=== PATIENT | female | born 1960 | race Caucasian/White ===

== ENCOUNTER 2016-11-10 08:30 | Outpatient (CLI) | payer MEDICAID | END 2016-11-10 08:31 | disposition home or self-care (01) | DX: N39.0 Urinary tract infection, site not specified (principal) ==

== ENCOUNTER 2018-08-02 20:36 | Emergency (ER) | payer MEDICAID ==
[2018-08-02 20:46] VITALS: BP 143/75
[2018-08-02] MEDS ORDERED: oxyCODONE/ACET 5/325 Prepack 4 PO STA (20:55)
[2018-08-02] MEDS ORDERED: CLINDAMYCIN 150 MG CAPSULE PO STA (20:55)
--- NOTE | 2018-08-02 20:56 | ED Physician Documentation ---
History of Present Illness - Stated complaint Stated Complaint: SWELLING ON RT SIDE FACE - Chief complaint Chief Complaint: General - History obtained from History obtained from: Patient - History of Present Illness Timing: Other (She had a right-sided headache over the last week and saw her doctor for it yesterday. There is no clear cause but today developed right- sided facial swelling and pain with chewing. No fevers.) Review of Systems Constitutional: denies: Fever, Chills Ears: denies: Ear pain Nose: denies: Rhinorrhea / runny nose, Congestion Throat: denies: Sore throat PD PAST MEDICAL HISTORY - Past Medical History Respiratory: Asthma GI: GERD - Past Surgical History Past Surgical History: Yes - Present Medications Home Medications: Ambulatory Orders Medication Instructions Recorded Confirmed Omeprazole [PriLOSEC] 10 mg PO DAILY 01/16/14 01/16/14 Hydrocodone/Acetaminophen 1 - 2 each PO Q6H PRN #14 tablet 08/01/16 [Hydrocodon-Acetaminophen 5-325] Ondansetron Odt [Zofran] 4 mg TL Q6H PRN #10 tablet 08/01/16 Clindamycin HCl [Clindamycin 150MG 2 tab PO QID #80 capsule 08/02/18 CAP] Oxycodone HCl/Acetaminophen 1 - 2 each PO Q6H PRN #14 tablet 08/02/18 [Percocet 5-325 mg Tablet] - Allergies Allergies/Adverse Reactions: Allergies Allergy/AdvReac Type Severity Reaction Status Date / Time cherries AdvReac Unknown Respiratory Uncoded 08/02/18 20:40 nuts AdvReac Unknown Respiratory Uncoded 08/02/18 20:40 - Social History Does the pt smoke?: No Smoking Status: Never smoker Does the pt drink ETOH?: No Does the pt have substance abuse?: No - Immunizations Immunizations are current?: Yes - POLST Patient has POLST: No PD ED PE NORMAL - Vitals Vital signs reviewed: Yes - General General: Alert and oriented X 3, No acute distress - HEENT HEENT: Other (The second to last molar on the right maxilla is very tender and there is overlying swelling and phlegmon but no palpable abscess that can be drained at this juncture. There is no trismus, sublingual edema,) - Neck Neck: Supple, no meningeal sign, No bony TTP - Neuro Neuro: Alert and oriented X 3, Normal speech Results - Vitals Vitals: Vital Signs - 24 hr 08/02/18 20:41 Temperature 36.2 C L Heart Rate 72 Respiratory 18 Rate Blood Pressure 143/75 H O2 Saturation 98 Oxygen O2 Source Room air Departure - Departure Disposition: 01 Home, Self Care Clinical Impression: Dental abscess Condition: Good Record reviewed to determine appropriate education?: Yes Instructions: ED Dental Abscess Facial Cellulitis Prescriptions: Clindamycin HCl [Clindamycin 150MG CAP] 2 tab PO QID #80 capsule Oxycodone HCl/Acetaminophen [Percocet 5-325 mg Tablet] 1 - 2 each PO Q6H PRN #14 tablet PRN Reason: pain Comments: It is very important that you follow-up with a dentist. When it comes to dental problems like yours, the emergency department can only offer a short-term solution to your long-term problem. A couple of low cost options for dental care include: [facility] in [place], calls [phone] for an appointment Or [facility] in [place], call [phone] for an appointment. Do not drink or drive while taking narcotic pain medication. Note that many narcotic pain relievers also contain Tylenol/acetaminophen. Please ensure that your total dose of acetaminophen from all sources does not exceed 3 g (3000 mg) per day. You may get constipated while on this medication. Take a stool softener such as Colace twice a day while you are on it. Also add an yscu-ctr-lqugzhy laxative such as senna or MiraLAX on any day that you do not have a bowel movement. If you received a narcotic pain medication or sedative while in the emergency department, do not drive for the next 24 hours. Your blood pressure was elevated today on check into the emergency department. This does not mean that you have hypertension, it is a common phenomenon to come to the emergency department and have elevated blood pressure. I recommend that you see your primary care physician within the week to have it rechecked when you are feeling better. Discharge Date/Time: 08/02/18 21:07
== END 2018-08-02 21:07 | disposition home or self-care (01) ==
LOC: ED 20:36
DX: K04.7 Periapical abscess without sinus (principal); R03.0 Elevated blood-pressure reading, without diagnosis of hypertension
CPT/HCPCS: 99283; A9270

== ENCOUNTER 2019-06-20 16:49 | Outpatient (CLI) | payer MEDICAID ==
--- NOTE | 2019-06-23 02:17 | Ultrasound Report ---
Reason: UTERINE PROLAPSE Procedure Date: 06/20/2019 Accession Number: [id number] / [id number] Procedure: US - Pelvic w/Transvaginal CPT Code: FULL RESULT: EXAM: PELVIC ULTRASOUND EXAM DATE: 06/20/2019 06:10 PM. CLINICAL HISTORY: UTERINE PROLAPSE. COMPARISON: Uterine prolapse. TECHNIQUE: Realtime transabdominal pelvic scan performed to identify the uterus and adnexa and as an overview of other pelvic structures, followed by transvaginal scan to provide greater detail of the uterus and adnexa, with static image documentation. FINDINGS: Uterus: 8.2 x 4.4 x 3.8 cm, volume 72 cc. Anteverted position. Normal overall size and echotexture. Masses: 2.0 x 1.9 x 1.6 cm right fundal submucosal leiomyoma. Endometrium: 6 mm. Thickened for a postmenopausal patient. Correlate with history of postmenopausal bleeding. Cervix: Unremarkable. Right Ovary: 4.5 x 3.9 x 2.8 cm, volume 25 cc. Multiple cysts, measuring up to 3.6 cm in diameter. Left Ovary: 3.8 x 2.9 x 2.8 cm, volume 17 cc. Multiple cysts, measuring up to 2.4 cm in diameter. Free Fluid: None. Other: None. IMPRESSION: Multiple bilateral ovarian cysts, measuring up to 3.6 cm on the right ovary and 2.4 cm on the left ovary, abnormal for a postmenopausal patient. Thickened endometrium for a postmenopausal patient. Fundal leiomyoma. RADIA
== END 2019-06-20 16:50 | disposition home or self-care (01) ==
LOC: DI 16:49
PROVIDERS: ATTEND Family Medicine
DX: N83.202 Unspecified ovarian cyst, left side (principal); N83.201 Unspecified ovarian cyst, right side; R93.89 Abnormal findings on diagnostic imaging of other specified body structures; D25.0 Submucous leiomyoma of uterus
CPT/HCPCS: 76830; 76856

== ENCOUNTER 2019-08-23 06:07 | Day surgery (SDC) | payer MEDICAID ==
[2019-08-23] MEDS ORDERED: MIDAZOLAM 2 MG/2 ML VIAL IVP ONE (06:08)
[2019-08-23] MEDS ORDERED: PROPOFOL 200 MG/20 ML VIAL IVP ONE (06:08)
[2019-08-23] MEDS ORDERED: fentaNYL 100 MCG/2 ML VIAL IVP ONE (06:08)
[2019-08-23] MEDS ORDERED: LIDOCAINE-MPF 2% 5 ML VIAL IM ONE (06:08)
[2019-08-23] MEDS ORDERED: DEXAMETHASONE 4 MG/ML VIAL IVP ONE (06:08)
[2019-08-23] MEDS ORDERED: KETOROLAC 30 MG/ML VIAL IVP ONE (06:08)
[2019-08-23] MEDS ORDERED: LACTATED RINGERS 1,000 ML IV ONE ×2 (06:30→08:30)
[2019-08-23 06:52] LABS: BILIRUBIN,URINE NEGATIVE (NEGATIVE); GLUCOSE, URINE (UA) NEGATIVE (NEGATIVE); KETONES,URINE (UA) NEGATIVE (NEGATIVE); LEUKOCYTE ESTERASE, URINE NEGATIVE (NEGATIVE); NITRITE,URINE NEGATIVE (NEGATIVE); OCCULT BLOOD,URINE NEGATIVE (NEGATIVE); PROTEIN,URINE NEGATIVE (NEGATIVE); UROBILINOGEN,URINE 0.2 (NORMAL) E.U./dL (NORMAL)
[2019-08-23 06:53] LABS: CLARITY,URINE HAZY (CLEAR)
[2019-08-23 06:57] LABS: BACTERIA,URINE Rare /HPF (None Seen); RBC,URINE 0-5 /HPF (0-5); SQUAMOUS EPITHELIAL CELL,UR MANY Squamous (<= Few)
--- NOTE | 2019-08-23 07:09 | ANESTHESIA ---
Pre-Anesthesia VS, & Labs - Diagnosis endometrial polyp - Procedure hysterscopy, d&c, myosure Vital Signs: Temp Pulse Resp BP Pulse Ox 36.8 C 65 16 108/70 96 08/23/19 06:36 08/23/19 06:36 08/23/19 06:36 08/23/19 06:36 08/23/19 06:36 Height 5 ft 6 in Weight (kg) 89.9 kg Body Mass Index 32.0 - Is Patient ?: No Home Medications and Allergies Home Medications: Ambulatory Orders Acetaminophen [Tylenol] 650 mg PO Q6H PRN 08/14/19 Albuterol Sulf [Ventolin Hfa Inhaler] 1 - 2 puffs INH Q4HR PRN 08/14/19 Aspirin 325 mg PO ONCE PRN 08/14/19 Fluticasone Propionate [Flovent Hfa] 2 puffs IH BID 08/14/19 Glucos Sul 2Kcl/MSM/Chond/C/Mn [Glucosamine Chondroitin Cap] 1 each PO DAILY 08/14/19 Ibuprofen 400 mg PO Q6H PRN 08/14/19 Montelukast Sodium 10 mg PO DAILY 08/14/19 Acetaminophen [Tylenol] 650 mg PO Q6H PRN 08/14/19 Albuterol Sulf [Ventolin Hfa Inhaler] 1 - 2 puffs INH Q4HR PRN 08/14/19 Aspirin 325 mg PO ONCE PRN 08/14/19 Fluticasone Propionate [Flovent Hfa] 2 puffs IH BID 08/14/19 Glucos Sul 2Kcl/MSM/Chond/C/Mn [Glucosamine Chondroitin Cap] 1 each PO DAILY 08/14/19 Ibuprofen 400 mg PO Q6H PRN 08/14/19 Montelukast Sodium 10 mg PO DAILY 08/14/19 Allergies/Adverse Reactions: Allergies Allergy/AdvReac Type Severity Reaction Status Date / Time peanut AdvReac Nausea Verified 08/23/19 06:48 cherries AdvReac Unknown Nausea Uncoded 08/23/19 06:48 Anes History & Medical History - Anesthetic History Anesthesia Complications: reports: No previous complications - Medical History Cardiovascular: reports: High cholesterol Pulmonary: reports: Asthma (well controlled) Gastrointestinal: reports: GERD (poorly controlled) Urinary: reports: Chronic bladder infection Neuro: reports: None Musculoskeletal: reports: Osteoarthritis Endocrine/Autoimmune: reports: None Blood Disorders: reports: None Skin: reports: None Smoking Status: Never smoker Psychosocial: reports: No issues indicated - Surgical History General: Colonoscopy, Other (removal of neck tumor 40 years ago) Eyes Ears Nose Throat (EENT):  Exam General: Alert, Oriented x3, Cooperative, No acute distress Dental: WNL Mouth Openin Fingerbreadth Neck Mobility: Normal Mallampati classification: II Thyromental Distance: 4-6 cm Respiratory: Lungs clear, Normal breath sounds, No respiratory distress, No accessory muscle use Cardiovascular: Regular rate, Normal S1, Normal S2, No murmurs Mental/Cognitive Status: Alert/Oriented X3, Normal for patient Plan Anesthesia Type: General Consent for Procedure(s) Verified and Reviewed: Yes Code Status: Attempt Resuscitation ASA classification: 2-Mild systemic disease Is this case an emergency?: No
[2019-08-23 07:13] LABS: BASOPHILS % (AUTO) 0.5 %; EOSINOPHILS # (AUTO) 0.5 10^3/uL (0.0-0.7); EOSINOPHILS % (AUTO) 6.8 %; HGB - HEMOGLOBIN 15.6 g/dL (12.0-16.0); LYMPHOCYTES # (AUTO) 2.4 10^3/uL (1.5-3.5); LYMPHOCYTES % (AUTO) 30.3 %; MEAN CORPUSCULAR HEMOGLOBIN 29.4 pg (27.0-31.0); MEAN CORPUSCULAR HGB CONC 33.4 g/dL (32.0-36.0); MEAN CORPUSCULAR VOLUME 87.9 fL (81.0-99.0); MONOCYTES # (AUTO) 0.6 10^3/uL (0.0-1.0); MONOCYTES % (AUTO) 7.8 %; NEUTROPHILS # (AUTO) 4.3 10^3/uL (1.5-6.6); NEUTROPHILS % (AUTO) 54.3 %; PLT - PLATELET COUNT 273 10^3/uL (130-450); RED BLOOD COUNT 5.31 10^6/uL (4.20-5.40); RED CELL DISTRIBUTION WIDTH 13.5 % (12.0-15.0); WHITE BLOOD COUNT 7.9 x10^3/uL (4.8-10.8)
[2019-08-23] MEDS ORDERED: ONDANSETRON 4 MG/2 ML VIAL IVP PRN (08:16)
[2019-08-23] MEDS ORDERED: HYDROcod/ACETAM 5/325 MG TABLET PO PRN (08:16)
[2019-08-23] MEDS ORDERED: IBUPROFEN 600 MG TABLET PO PRN (08:18)
--- NOTE | 2019-08-23 08:33 | OPERATIVE REPORT ---
DATE OF SERVICE: 08/23/2019 Physician: Beto Montoya DO PREOPERATIVE DIAGNOSIS: Endometrial polyp. POSTOPERATIVE DIAGNOSIS: Normal endometrium. PROCEDURE: Hysteroscopy with Dilation and Curettage. SURGEON: Beto Montoya DO ANESTHESIA: General. ESTIMATED BLOOD LOSS: 5 mL WOUND CLASSIFICATION: 2. COUNTS: Sponge count was correct. Needle count was not applicable. SURGICAL FINDINGS: Though patient had a large polyp noted to be prolapsing from the cervical os, this was missing today. The endometrial cavity was unremarkable. It showed some atrophic changes as one would expect. Both cornua were inspected and found to be unremarkable. There is a grade 2-3 uterine prolapse. DESCRIPTION OF PROCEDURE: Patient was taken to the operative suite, placed on the surgical table in supine position. Under general anesthesia, she was prepped and draped in the usual fashion. A timeout then took place. A weighted speculum was then placed in the vaginal vault, and the retractor was then used to visualize the cervix. A single-tooth tenaculum was placed on the anterior lip of the cervix. Since no polyp was noted, the uterus was then sounded to a depth of 9 cm. The cervix was dilated to 8 mm and the hysteroscope advanced through the straightened endocervical canal into the endometrial cavity and the above findings noted. No polyps were appreciated at all. The lining of the uterus was smooth and atrophic as one would expect. The hysteroscope was then withdrawn after hysteroscopic photographs took place. A sharp curette was now advanced through the straightened endocervical canal into the endometrial cavity. Clinical Specialist samples of all 4 quadrants were obtained. The endometrial cavity was then thoroughly curetted with return of a small amount of tissue, which was sent to pathology for evaluation. The single- tooth tenaculum was removed from the anterior lip of the cervix. No signs of bleeder noted. Hemostasis followed. The vaginal vault was then cleared of all blood, clots and debris. The weighted speculum was removed from the vaginal vault. Patient was then taken to recovery room in stable condition. TD: 08/23/2019 08:26 GUSTAVO
[2019-08-23] MEDS ORDERED: IBUPROFEN 600 MG TABLET PO ONE (09:10)
[2019-08-23] MEDS ORDERED: HYDROcod/ACETAM 5/325 MG TABLET ONE (09:10)
[2019-08-23 09:17] VITALS: BP 119/65
== END 2019-08-23 06:08 | disposition home or self-care (01) ==
LOC: SDS 06:07
PROVIDERS: ATTEND Obstetrics & Gynecology
PROC: 0UJD8ZZ Inspection of Uterus and Cervix, Via Natural or Artificial Opening Endoscopic (ICD-10-PCS; 2019-08-23)
PROC: 0UDB7ZZ Extraction of Endometrium, Via Natural or Artificial Opening (ICD-10-PCS; principal; 2019-08-23 07:30)
DX: N84.0 Polyp of corpus uteri (principal); N81.2 Incomplete uterovaginal prolapse; J45.909 Unspecified asthma, uncomplicated; Z79.899 Other long term (current) drug therapy; Z79.51 Long term (current) use of inhaled steroids; Z87.891 Personal history of nicotine dependence
CPT/HCPCS: 58558; 81001; 85025; A9270; J7120; 87086

== ENCOUNTER 2019-09-12 09:50 | Outpatient (CLI) | payer MEDICAID ==
[2019-09-12 10:25] LABS: BASOPHILS % (AUTO) 0.5 %; EOSINOPHILS # (AUTO) 0.4 10^3/uL (0.0-0.7); EOSINOPHILS % (AUTO) 5.3 %; HGB - HEMOGLOBIN 14.3 g/dL (12.0-16.0); LYMPHOCYTES # (AUTO) 1.8 10^3/uL (1.5-3.5); LYMPHOCYTES % (AUTO) 23.8 %; MEAN CORPUSCULAR HEMOGLOBIN 28.1 pg (27.0-31.0); MEAN CORPUSCULAR HGB CONC 32.2 g/dL (32.0-36.0); MEAN CORPUSCULAR VOLUME 87.2 fL (81.0-99.0); MEAN PLATELET VOLUME 10.7 fL (7.9-10.8); MONOCYTES # (AUTO) 0.7 10^3/uL (0.0-1.0); MONOCYTES % (AUTO) 8.6 %; NEUTROPHILS # (AUTO) 4.7 10^3/uL (1.5-6.6); NEUTROPHILS % (AUTO) 61.4 %; PLT - PLATELET COUNT 275 10^3/uL (130-450); RED BLOOD COUNT 5.09 10^6/uL (4.20-5.40); RED CELL DISTRIBUTION WIDTH 13.7 % (12.0-15.0); WHITE BLOOD COUNT 7.7 x10^3/uL (4.8-10.8)
[2019-09-12 11:03] LABS: BILIRUBIN,URINE NEGATIVE (NEGATIVE); GLUCOSE, URINE (UA) NEGATIVE (NEGATIVE); KETONES,URINE (UA) NEGATIVE (NEGATIVE); LEUKOCYTE ESTERASE, URINE TRACE (NEGATIVE); NITRITE,URINE NEGATIVE (NEGATIVE); OCCULT BLOOD,URINE NEGATIVE (NEGATIVE); PROTEIN,URINE NEGATIVE (NEGATIVE); UROBILINOGEN,URINE 0.2 (NORMAL) E.U./dL (NORMAL)
[2019-09-12 11:20] LABS: CLARITY,URINE CLEAR (CLEAR)
[2019-09-12 11:24] LABS: BACTERIA,URINE Few /HPF (None Seen); RBC,URINE None Seen /HPF (0-5); SQUAMOUS EPITHELIAL CELL,UR FEW Squamous (<= Few)
== END 2019-09-12 09:51 | disposition home or self-care (01) ==
LOC: LAB 09:50
PROVIDERS: ATTEND Obstetrics & Gynecology
DX: Z01.818 Encounter for other preprocedural examination (principal); N81.4 Uterovaginal prolapse, unspecified
CPT/HCPCS: 36415; 81001; 81003; 85025; 86850; 86900; 86901; 93005

== ENCOUNTER 2019-09-13 10:49 | Day surgery (SDC) | payer MEDICAID ==
[2019-09-13] MEDS ORDERED: PHENYLEPHRINE 10 MG/ML VIAL IV ONE (10:50)
[2019-09-13] MEDS ORDERED: SODIUM CHLORIDE FLUSH 0.9% 10 ML SYRINGE ONE (10:53)
[2019-09-13] MEDS ORDERED: CEFAZOLIN SODIUM IN 0.9 % NACL 2 GM/100 ML BAG IV ONE (10:54)
[2019-09-13] MEDS ORDERED: PHENAZOPYRIDINE 100 MG TABLET PO ONE (11:01)
[2019-09-13] MEDS ORDERED: LACTATED RINGERS 1,000 ML IV ONE ×2 (11:14→17:21)
--- NOTE | 2019-09-13 13:40 | ANESTHESIA ---
Pre-Anesthesia VS, & Labs - Diagnosis uterine prolapse - Procedure [facility] Height 5 ft 6 in Weight (kg) 99.1 kg Body Mass Index 32.0 - Is Patient ?: No Home Medications and Allergies Acetaminophen [Tylenol] 650 mg PO Q6H PRN 08/14/19 Albuterol Sulf [Ventolin Hfa Inhaler] 1 - 2 puffs INH Q4HR PRN 08/14/19 Aspirin 325 mg PO ONCE PRN 08/14/19 Fluticasone Propionate [Flovent Hfa] 2 puffs IH BID 08/14/19 Glucos Sul 2Kcl/MSM/Chond/C/Mn [Glucosamine Chondroitin Cap] 1 each PO DAILY 08/14/19 Ibuprofen 400 mg PO Q6H PRN 08/14/19 Montelukast Sodium 10 mg PO DAILY 08/14/19 Allergies/Adverse Reactions: Allergies Allergy/AdvReac Type Severity Reaction Status Date / Time peanut AdvReac Nausea Verified 09/13/19 11:22 cherries AdvReac Unknown Nausea Uncoded 09/13/19 11:22 Anes History & Medical History - Anesthetic History Anesthesia Complications: reports: No previous complications Family history of Anesthesia Complications: Denies Family history of Malignant Hyperthermia: Denies - Medical History Cardiovascular: reports: High cholesterol Pulmonary: reports: Asthma Gastrointestinal: reports: GERD Urinary: reports: Chronic bladder infection Neuro: reports: None Musculoskeletal: reports: Osteoarthritis Endocrine/Autoimmune: reports: None Blood Disorders: reports: None Skin: reports: None Smoking Status: Former smoker Psychosocial: reports: No issues indicated - Surgical History General: Colonoscopy, Other Eyes Ears Nose Throat (EENT):  Gynecologic: Dilation and currettage, Other Exam General: Alert, Oriented x3, Cooperative, No acute distress Dental: WNL Mouth Openin Fingerbreadth Neck Mobility: Normal Mallampati classification: II Thyromental Distance: 4-6 cm Respiratory: Lungs clear, Normal breath sounds, No respiratory distress, No accessory muscle use Cardiovascular: Regular rate, Normal S1, Normal S2, No murmurs Abdomen: Normal bowel sounds, Soft, No tenderness, No hepatospenomegaly, No masses Extremities: No clubbing, No cyanosis, No edema, Normal pulses, No tenderness/swelling Neurological: Normal gait, Normal speech, Strength at 5/5 X4 ext, Normal tone, Sensation intact, Cranial nerves 3-12 NL, Reflexes 2+ Mental/Cognitive Status: Alert/Oriented X3, Normal for patient Cognitive Status: Within normal limits Plan Anesthesia Type: General Consent for Procedure(s) Verified and Reviewed: Yes Code Status: Attempt Resuscitation ASA classification: 2-Mild systemic disease Is this case an emergency?: No
[2019-09-13] MEDS ORDERED: LIDOCAINE 1%-EPI 1:100000 20 ML MDV ONE (14:22)
[2019-09-13] MEDS ORDERED: BUPIVACAINE 0.25% PF 30 ML VIAL ONE (14:22)
[2019-09-13] MEDS ORDERED: BUPIVACAINE 0.25% PF 30 ML VIAL SUBQ ONE ×2 (15:28)
[2019-09-13] MEDS ORDERED: HYDROmorphone 0.5 MG/0.5 ML SYRINGE IVP PRN (17:26)
[2019-09-13] MEDS ORDERED: ONDANSETRON 4 MG/2 ML VIAL IVP PRN ×2 (17:26→19:14)
[2019-09-13] MEDS ORDERED: IBUPROFEN 600 MG TABLET PO PRN (17:33)
[2019-09-13] MEDS: HYDROmorphone 1 MG/ML CARPUJECT ONE ×2 (17:56→18:15)
[2019-09-13] MEDS ORDERED: HYDROmorphone 1 MG/ML CARPUJECT IVP PRN (19:19)
--- NOTE | 2019-09-13 19:28 | OPERATIVE REPORT ---
DATE OF SERVICE: 09/13/2019 Physician: Beto Montoya DO PREOPERATIVE DIAGNOSIS: Uterine prolapse. POSTOPERATIVE DIAGNOSIS: Uterine prolapse. PROCEDURE PERFORMED: Laparoscopic-assisted vaginal hysterectomy with bilateral salpingectomy and irvin gnostic cystoscopy. SURGEON: Beto Montoya DO GOVERNMENT GUARD: Dr. Brown who helped with operation of the camera and draping. ANESTHESIA: General. ESTIMATED BLOOD LOSS: 50 mL. WOUND CLASSIFICATION: 2. COUNTS: Sponge count and needle count were correct. For the clinical history, please see H and P. SURGICAL FINDINGS: The uterus sounded to a depth of 9 cm. There was a grade 3 uterine prolapse note d while the patient was relaxed under anesthesia. The left ovary had a small benign cyst. Both fall opian tubes were adhered well to the ovary. The left ovary had a lot of filmy adhesions along the ov yariel ligament. There was also juan luis adhesions on the liver, reminiscent of Bhpj-Umid-Ckbiqh syndrom e. PROCEDURE IN DETAIL: The patient was taken to the operative suite, placed on the surgical table in s upine position. Under general anesthesia, she was placed in Vladimir stirrups, prepped and draped in th e usual fashion. Timeout then took place. Once the timeout was completed, the weighted speculum was placed in the vaginal vault and the cervix visualized. The uterus sounded to a depth of 9 cm. The cervix was dilated to 8 mm. The VESIcare was used then to manipulate the uterus and occlude the vagi nal canal. Once that was in place, the weighted speculum was removed. The surgeon's gloves were elif nged and attention was placed to the abdomen. Prior to making any abdominal incisions, all areas wer e anesthetized with 0.25% Marcaine. A 5 mm incision was then made in the infraumbilical fold. The a bdominal wall was elevated in a three-point fashion and Veress needle extended through the incision i nto the abdomen. The abdomen was then insufflated with approximately 3 liters of CO2. Good rates fl ow and good intraabdominal pressures noted. The Veress needle was then withdrawn. The Optiview troc ar and obturator were now used under laparoscopic guidance. This was extended through the umbilical incision. The abdominal wall was elevated again. All layers were noted and entrance into the abdome n was easily visualized. The trocar was removed, CO2 applied and good rates of flow and good intraab dominal pressures were noted. The laparoscope was now advanced into the abdomen. A second port was t hen made to left of the rectus musculature. This was approximately 4 cm above the anterior iliac spi ne. Similar port was now placed on the right side lateral to the rectus musculature in the same plan e. This was done under direct laparoscopic visualization. A probe was then placed and the above fin dings noted. Laparoscopic photographic documentation took place. The right fallopian tube was now m anipulated and carefully dissected from the ovary. Then, it was dissected free from the mesosalpinx. All dissection intra-abdominally was done using the LigaSure [place] device. The round ligament o n the right was now divided and hemostasis followed. It is noted that there was hemostasis in dissec tion along the mesosalpinx. The anterior leaf of the broad ligament was now entered and dissected to the level of the vesicouterine plica, just to the right of the midline. The ovarian ligament was no w divided and hemostasis followed. The posterior leaf of the broad ligament was now dissected free a nd hemostasis followed. Adventitial tissue was now dissected to the level of the uterine vessels on the left hand side. These were now divided using the LigaSure device and hemostasis followed. The b ladder was now dissected free and removed caudally away from the plane of dissection. The cup from t he VESIcare was easily seen. Attention was now placed to the right fallopian tube. The right fallop diego tube was now grasped, elevated and dissected free from the ovary and then freed from the mesosalp inx. The juan luis adhesions were also now lysed, which were connecting the ovary to the posterior uteri ne fundus. The round ligament on the right hand side was now divided and hemostasis followed. The o varian ligament on the right hand side was now divided and hemostasis followed. The anterior leaf of the broad ligament was now entered and dissected to meet the previous incision at the vesicouterine plica. The posterior leaf of the broad ligament was now dissected free to the level of the VESIcare cup around the cervix. Dissection took place around posteriorly behind in the posterior cul-de-sac a t the level of the VESIcare cup. The uterine vessels on the right hand side were now divided and hem ostasis followed. The uterus was now mottling quite well. Further dissection took place to the leve l of the vaginal cup from the VESIcare device. This included the vaginal vessels on both the right a nd left hand side. The area was thoroughly irrigated. No signs of bleeding were noted. Hemostasis followed. The Harmonic scalpel was now used to enter the anterior cul-de-sac and posterior cul-de-sa c. Once this was accomplished and hemostasis was assured, the intra-abdominal portion of the case no w ceased. The CO2 was allowed to escape from the abdomen. All ports were removed. No intra-abdomin al bleeding was noted. The skin was closed with a 4-0 Monocryl suture in a subcutaneous fashion. He mostasis followed. Steri-Strips were then placed and sterile dressings were placed. Attention was n ow placed to the vagina. The weighted speculum was placed in the vaginal vault. The cervix was easi ly visualized and grasped with a single-tooth tenaculum. A right angle retractor was then placed ant eriorly through the previous incision into the abdomen and elevated the bladder out of the plane of d issection. The blade of a weighted speculum was now advanced through the posterior incision in the p osterior cul-de-sac and hemostasis followed. The uterosacral ligaments on the left were now clamped, divided, and sutured with 0 Vicryl suture and hemostasis followed. There was a small piece of the c ardinal ligament left on that side and that was clamped, divided, and sutured with 0 Vicryl suture an d hemostasis followed. The uterosacral ligaments on the right hand side were now clamped, divided, a nd sutured with 0 Vicryl suture and hemostasis followed. Again, there was a small piece of the cardi nal ligament that was left. This was clamped, divided, and sutured with 0 Vicryl suture and hemostas is followed. The uterus and bilateral fallopian tubes were now removed from the abdomen. There was some oozing on the right sidewall near the uterosacral ligament. This was rendered hemostatic with a qbrzry-ee-kaqqa suture of 2-0 Vicryl suture and hemostasis followed. The peritoneum was now visuali zed and sutured in a pursestring fashion with 2-0 Vicryl suture and hemostasis followed. The vaginal cuff was now reapproximated using 0 Vicryl suture, with attention placed to make sure that the utero sacral ligaments were attached to the vaginal cuff. Once the vaginal cuff was now closed in a simple interrupted fashion using 0 Vicryl suture, hemostasis followed. The weighted speculum was now remov ed from the vaginal vault. Attention was now placed to the bladder. A 70-degree cystoscope was now advanced into the bladder. The bladder was then instilled with approximately 400 mL of normal saline . The patient had been given Pyridium prior to the surgery and no bladder defects were noted. Both ureteral jets were visualized and found to be extruding urine colored with the Pyridium bilaterally. Once this was done, the cystoscope was now removed and a Gong catheter placed. The patient was now taken to recovery room in stable condition. TD: 09/13/2019 17:54
[2019-09-13] MEDS: HYDROcod/ACETAM 5/325 MG TABLET PO PRN (20:11)
[2019-09-13] MEDS: LACTATED RINGERS 1,000 ML IV SCH (20:12)
[2019-09-13] MEDS ORDERED: KETOROLAC 15 MG/ML VIAL IVP PRN (22:31)
[2019-09-13] MEDS ORDERED: LORazepam 0.5 MG TABLET PO PRN (22:32)
[2019-09-13] MEDS: METOCLOPRAMIDE 10 MG/2 ML VIAL IVP PRN (22:45)
[2019-09-14] MEDS: LACTATED RINGERS 1,000 ML IV SCH (03:02)
[2019-09-14] MEDS ORDERED: SODIUM CHLORIDE FLUSH 0.9% 10 ML SYRINGE ONE (04:37)
[2019-09-14] MEDS: METOCLOPRAMIDE 10 MG/2 ML VIAL IVP PRN (04:41)
[2019-09-14 07:23] VITALS: BP 120/68
--- NOTE | 2019-09-14 08:29 | PROVIDER PROGRESS NOTE ---
Subjective - General Procedure Date: 09/13/19 Post Op Days: 1 Procedure Performed: LAVH with bilateral salpingectomy and diagnostic cystoscopy - Other Other Information/Narrative: The patient spent the night last night due to the lateness of the hour when we finished as well as postop pain and nausea. She is doing much better this morning pain edgar. She states that continues to improve. She is doing better nausea edgar but still has a little nausea. She is able to eat some breakfast this morning. She states she has not had any vaginal bleeding at all Objective - Patient Data Vital Signs: Vital Signs x48h Temp Pulse Resp BP Pulse Ox 09/14/19 07:22 36.9 C 61 18 120/68 98 09/14/19 03:12 36.5 C 64 20 116/65 100 09/14/19 00:30 36.5 C 65 20 108/56 L 93 Weight: Weight 09/12/19 09/13/19 09/14/19 23:59 23:59 23:59 Weight (kg) 99.1 kg Intake & Output: Intake and Output Totals x24h 09/12/19 09/13/19 09/14/19 23:59 23:59 23:59 Intake Total 3325 974.167 Output Total 860 0 Balance 2465 974.167 - Current Medications Current Medications: Current Medications Generic Name Dose Route Start Last Admin Trade Name Freq PRN Reason Stop Dose Admin Hydrocodone Bitart/Acetaminophen 1 tab 09/13/19 17:26 09/13/19 20:11 [place] 5/325 PO 1 tab Q4HR PRN Administration PAIN Hydromorphone HCl 0.5 mg 09/13/19 17:26 09/13/19 17:50 Dilaudid Inj Syringe IVP 0.5 mg Q30M PRN Administration Breakthrough Pain Hydromorphone HCl 1 mg 09/13/19 19:19 09/13/19 19:25 Dilaudid Inj Carp IVP 1 mg Q2H PRN Administration PAIN Lactated Ringer's 1,000 mls @ 125 mls/hr 09/13/19 20:00 09/14/19 03:02 Lr IV 125 mls/hr .Q8H BLANK Administration Ibuprofen 600 mg 09/13/19 17:33 09/13/19 21:38 Motrin PO 600 mg Q6HR PRN Administration PAIN Ketorolac Tromethamine 15 mg 09/13/19 22:31 09/14/19 04:41 Toradol Inj (15mg) IVP 09/18/19 22:30 15 mg Q6HR PRN Administration PAIN Metoclopramide HCl 5 mg 09/13/19 22:28 09/14/19 04:41 Reglan Inj IVP 09/14/19 22:27 5 mg Q6HR PRN Administration Nausea / Vomiting Ondansetron HCl 4 mg 09/13/19 17:26 09/13/19 18:18 Zofran Inj IVP 4 mg Q6HR PRN Administration Nausea / Vomiting Ondansetron HCl 4 mg 09/13/19 19:14 09/13/19 20:39 Zofran Inj IVP 09/14/19 19:13 4 mg Q6HR PRN Administration Nausea / Vomiting - Physical Exam Comments/Other: Heart: Heart has a regular rate and rhythm without murmur Lungs: Lungs are clear to auscultation bilaterally without wheezes, rales or rhonchi Abdomen: The abdomen is soft, pliable and nontender. She has normoactive bowel sounds. Incisions: Incisions are clean and dry. They are well approximated. Steri- Strips are placed. No signs of infection are noted. Impression/Plan - Problem List Problem List: Postop day #1: Stable. Plan: The patient will be allowed to be discharged home. At her request she was given a prescription for Zofran 4mg orally every 4 hours PRN. She was given 10 tablets. The rest of her discharge directions are already noted in the chart and have been given to the patient.
[2019-09-14] MEDS: HYDROcod/ACETAM 5/325 MG TABLET PO PRN (08:54)
== END 2019-09-14 09:15 | disposition home or self-care (01) ==
LOC: SDS 10:49 → MS2 18:41 → SDS 09-14 09:15
PROVIDERS: ATTEND Obstetrics & Gynecology
PROC: 0UT7FZZ Resection of Bilateral Fallopian Tubes, Via Natural or Artificial Opening With Percutaneous Endoscopic Assistance (ICD-10-PCS; 2019-09-13)
PROC: 0UT9FZZ Resection of Uterus, Via Natural or Artificial Opening With Percutaneous Endoscopic Assistance (ICD-10-PCS; principal; 2019-09-13 12:30)
DX: N81.4 Uterovaginal prolapse, unspecified (principal); D25.1 Intramural leiomyoma of uterus; B67.99 Other echinococcosis; J45.909 Unspecified asthma, uncomplicated; M19.90 Unspecified osteoarthritis, unspecified site; Z79.82 Long term (current) use of aspirin; Z87.891 Personal history of nicotine dependence
CPT/HCPCS: 58552; A9270; J0690; J1170; J2765; J7120

== ENCOUNTER 2020-03-17 13:00 | Outpatient (CLI) | payer MEDICAID | END 2020-03-17 23:59 | disposition home or self-care (01) | LOC: LAB.R 13:00 | PROVIDERS: ATTEND Physician Assistant | DX: J02.9 Acute pharyngitis, unspecified (principal) | CPT/HCPCS: 87070; 87077 ==

== ENCOUNTER 2020-04-09 14:58 | Outpatient (CLI) | payer MEDICAID | END 2020-04-09 14:59 | disposition home or self-care (01) | LOC: LAB.S 14:58 | PROVIDERS: ATTEND Registered Nurse | DX: Z00.00 Encounter for general adult medical examination without abnormal findings (principal) | CPT/HCPCS: 36415; 81599; 86480 ==

== ENCOUNTER 2020-10-23 05:59 | Emergency (ER) | payer BC, MEDICAID ==
[2020-10-23] MEDS ORDERED: ONDANSETRON ODT 4 MG TABLET TL STA (06:27)
--- NOTE | 2020-10-23 06:27 | ED Physician Documentation ---
PD HPI FEMALE - Stated complaint Stated Complaint: FEMALE - Chief complaint Chief Complaint: UTI - History obtained from History obtained from: Patient - History of Present Illness Timing - onset: Today, Yesterday Timing - duration: Days (10/12) Timing - details: Gradual onset, Still present Associated symptoms: Dysuria, Urinary frequency (yesterday), Hematuria (just started today) Similar symptoms before: Diagnosis (UTI (though without blood previously)) Recently seen: Not recently seen Review of Systems Constitutional: denies: Fever, Chills GI: reports: Nausea. denies: Vomiting : reports: Dysuria, Frequency, Hematuria (today). 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 : Chronic bladder infection HEENT: Chronic vision loss, Chronic sinusitis Psych: None Musculoskeletal: Osteoarthritis Derm: None - Past Surgical History Past Surgical History: Yes General: Colonoscopy, Other /FURNITURE SHAMPOOER: Dilation and currettage, Other HEENT:  - Present Medications Home Medications: Ambulatory Orders Medication Instructions Recorded Confirmed Albuterol Sulf [Ventolin Hfa 1 - 2 puffs INH Q4HR PRN 08/14/19 09/13/19 Inhaler] Montelukast Sodium 10 mg PO DAILY 08/14/19 09/13/19 Cephalexin [Keflex] 500 mg PO TID #20 capsule 10/23/20 Phenazopyridine HCl [Pyridium] 100 mg PO TID PRN #15 tablet 10/23/20 - Allergies Allergies/Adverse Reactions: Allergies Allergy/AdvReac Type Severity Reaction Status Date / Time auguste Allergy Nausea Verified 09/13/19 19:18 peanut AdvReac Nausea Verified 09/13/19 11:22 - Social History Does the pt smoke?: No Smoking Status: Never smoker Does the pt drink ETOH?: No Does the pt have substance abuse?: No - Immunizations Immunizations are current?: Yes - POLST Patient has POLST: No PD ED PE NORMAL - Vitals Vital signs reviewed: Yes - General General: Alert and oriented X 3, No acute distress, Well developed/nourished - Abdomen Abdomen: Soft, Non tender - Back Back: No CVA TTP - Derm Derm: Normal color, Warm and dry Results - Vitals Vitals: Vital Signs - 24 hr 10/23/20 06:03 Temperature 36 C L Heart Rate 69 Respiratory 18 Rate Blood Pressure 150/90 H O2 Saturation 97 Oxygen O2 Source Room air PD MEDICAL DECISION MAKING - ED course Complexity details: considered differential (With dysuria and UTI symptoms yesterday and only hematuria today. Seems reasonable to treat as cystitis. Gross hematuria noted on the urine sample brought to the lab.), d/w patient Departure - Departure Disposition: Home, Self Care Clinical Impression: Urinary tract infection Qualifiers: Urinary tract infection type: acute cystitis Hematuria presence: with hematuria Qualified Code(s): N30.01 - Acute cystitis with hematuria Condition: Stable Record reviewed to determine appropriate education?: Yes Instructions: ED UTI Cystitis Female Prescriptions: Cephalexin [Keflex] 500 mg PO TID #20 capsule Phenazopyridine HCl [Pyridium] 100 mg PO TID PRN #15 tablet PRN Reason: Abdominal Pain Comments: Your symptoms sound consistent with a bladder infection and some percentage of bladder infections will have notable blood from the rawness. Stay well-hydrated. Cephalexin antibiotic as directed for the infection. You can add phenazopyridine as needed for the urinary discomfort. Tylenol or ibuprofen if needed for pain or discomfort as well. Recheck if not improved well over the next couple of days with resolution of the bleeding.
[2020-10-23] MEDS ORDERED: PHENAZOPYRIDINE 100 MG TABLET PO STA (06:28)
[2020-10-23] MEDS ORDERED: cephALEXin 250 MG CAPSULE PO STA (06:28)
[2020-10-23 06:37] LABS: BILIRUBIN,URINE NEGATIVE (NEGATIVE); GLUCOSE, URINE (UA) NEGATIVE (NEGATIVE); KETONES,URINE (UA) NEGATIVE (NEGATIVE); LEUKOCYTE ESTERASE, URINE TRACE (NEGATIVE); NITRITE,URINE NEGATIVE (NEGATIVE); OCCULT BLOOD,URINE LARGE (NEGATIVE); PROTEIN,URINE 100 mg/dL (NEGATIVE); UROBILINOGEN,URINE 0.2 (NORMAL) E.U./dL (NORMAL)
[2020-10-23 06:44] VITALS: BP 148/88
--- OUTSIDE RECORDS SUMMARY | 2020-10-23 06:46 | EXTERNAL MEDICAL SUMMARY RPT | Continuity of Care Document ---
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 Unavailable Problems date description facility 2020-10-17 00:00:00 [facility]:00:00 Lesion of plantar nerve [facility] 2020-10-17 00:00:00 [facility] 2020-10-17 00:00:00 Other screening mammogram [facility] 2020-10-17 00:00:00 [facility] neoplasms of colon [facility] 2020-10-17 00:00:00 [facility]:00 DEXA BONE DENSITY COMPLETE [facility] 2020-10-17 00:00:00 COMPREHENSIVE METABOLIC PANEL [facility] 2020-10-17 00:00:00 [facility]EN [facility] 2020-[facility]17 00:00:00 CBC W/Diff/Plt [facility] 2020-10-17 00:00:00 [facility] unspecified lower limb [facility] 2020-10-17 00:00:00 [facility] without [facility] abnormal findings 2020-10-17 00:00:00 [facility] for [facility] malignant neoplasm of colon [facility] 2020-10-17 00:00:00 [facility] for malignant neoplasm Maribel bhatia C of breast 2020-10-17 00:00:00 Health[facility]related [facility] 2020-10-17 00:00:00 [facility] and exposure [facility] 2020-10-17 00:00:00 [facility] mammography [facility] 2020-10-17 00[facility]00[facility] 00:00:00 Screening - health check [facility] 2020-10-17 00:00:00 [facility] neoplasm of colon [facility] 2020-10-17 00:00:00 Little interest or pleasure in [facility] doing things? [facility] 2020-10-17 00:00:00 Feeling down, depressed, or [facility] hopeless? [facility] 2020-10-17 00:00:00 Patient Health Questionnaire 2 [facility] item (PHQ2) total score [facility] 2020-10-17 00:00:00 Lateral plantar neuropathy [facility] 2020-10-17 00:00:00 Tobacco smoking status NHIS [facility] 2020-10-17 00:00:00 [facility] Allergies date description facility LEVOFLOXACIN [facility] peanut [facility] Procedures date description facility 2020-10-17 00:00:00 SNOMED-CT:[id number] [facility] date description facility 2020-10-17 00:00:[facility] Social History date description facility 2020-10-17 00:[facility] 2020-10-17 00:00:00 Former smoker [facility] date description facility [id number]
[2020-10-23 06:47] LABS: CLARITY,URINE BLOODY (CLEAR)
[2020-10-23 06:48] LABS: BACTERIA,URINE Rare /HPF (None Seen); RBC,URINE TNTC /HPF (0-5); SQUAMOUS EPITHELIAL CELL,UR RARE Squamous (<= Few)
== END 2020-10-23 06:46 | disposition home or self-care (01) ==
LOC: ED 05:59
DX: N30.01 Acute cystitis with hematuria (principal)
CPT/HCPCS: 81001; 87086; 99283; A9270; Q0162; 81003

== ENCOUNTER 2021-02-27 14:51 | Outpatient (CLI) | payer BC ==
--- NOTE | 2021-02-27 15:24 | XRAY Report ---
PROCEDURE: Finger(s) LT INDICATIONS: LEFT THUMB PAIN TECHNIQUE: AP hand, 3 views of the first finger(s) acquired. COMPARISON: None FINDINGS: Bones: There is a slight irregular appearance at the distal aspect of the proximal first phalanx. It is not well seen on all views. Soft tissues: No suspicious soft tissue calcifications. IMPRESSION: Slight irregular appearance of the distal aspect of the proximal first phalanx seen only on one view. This is suspected to be artifactual. However, recommend correlation of point tenderness and history of trauma. If concern persists, follow-up x-ray in 7-10 days is recommended for further evaluation. Reviewed by: Sabina Rich MD on 02/27/2021 3:23 PM PDT Approved by: Sabina Rich MD on 02/27/2021 3:23 PM PDT Station ID: [id number]
== END 2021-02-27 23:59 | disposition home or self-care (01) ==
LOC: DI.S 14:51
PROVIDERS: ATTEND Physician Assistant Medical
DX: R93.6 Abnormal findings on diagnostic imaging of limbs (principal)

== ENCOUNTER 2022-09-02 07:59 | Outpatient (CLI) | payer BC ==
[2022-09-02 14:44] LABS: BASOPHILS # (AUTO) 0.1 10^3/uL (0.0-0.1); BASOPHILS % (AUTO) 0.7 %; EOSINOPHILS # (AUTO) 0.2 10^3/uL (0.0-0.7); EOSINOPHILS % (AUTO) 1.7 %; HCT - HEMATOCRIT 46.1 % (37.0-47.0); HGB - HEMOGLOBIN 14.6 g/dL (12.0-16.0); LYMPHOCYTES # (AUTO) 4.2 10^3/uL (1.5-3.5); LYMPHOCYTES % (AUTO) 41.6 %; MEAN CORPUSCULAR HEMOGLOBIN 28.7 pg (27.0-31.0); MEAN CORPUSCULAR HGB CONC 31.7 g/dL (32.0-36.0); MEAN CORPUSCULAR VOLUME 90.7 fL (81.0-99.0); MEAN PLATELET VOLUME 11.5 fL (7.9-10.8); MONOCYTES # (AUTO) 0.8 10^3/uL (0.0-1.0); MONOCYTES % (AUTO) 8.1 %; NEUTROPHILS # (AUTO) 4.8 10^3/uL (1.5-6.6); NEUTROPHILS % (AUTO) 47.6 %; PLT - PLATELET COUNT 291 10^3/uL (130-450); RED BLOOD COUNT 5.08 10^6/uL (4.20-5.40); RED CELL DISTRIBUTION WIDTH 14.7 % (12.0-15.0); WHITE BLOOD COUNT 10.1 x10^3/uL (4.8-10.8)
[2022-09-02 15:52] LABS: ALBUMIN/GLOBULIN RATIO 1.3 (1.0-2.2); ALKALINE PHOSPHATASE 87 IU/L (42-121); ALT ALANINE AMINOTRANSFERASE 30 IU/L (10-60); AST ASPARTATE AMINOTRANSFERASE 23 IU/L (10-42); BILIRUBIN,TOTAL 0.6 mg/dL (0.2-1.0); BUN - BLOOD UREA NITROGEN 18 mg/dL (6-20); CALCIUM 8.9 mg/dL (8.5-10.3); CARBON DIOXIDE - CO2 27 mmol/L (21-32); CHLORIDE 103 mmol/L (101-111); CHOL/HDL RATIO 3.3 (<4.4); CHOLESTEROL 161 mg/dL; CREATININE 0.9 mg/dL (0.4-1.0); GFR - MDRD 63 (>89); GLUCOSE 82 mg/dL (70-100); HDL CHOLESTEROL 49 mg/dL; LDL CHOLESTEROL,CALCULATED 83 mg/dL; LDL/HDL RATIO 1.7 (<4.4); POTASSIUM 3.9 mmol/L (3.5-5.0); SODIUM 138 mmol/L (135-145); TRIGLYCERIDES 144 mg/dL; VLDL CHOLESTEROL 29 mg/dL
[2022-09-02 15:54] LABS: THYROID STIMULATING HORMONE 3.1 uIU/mL (0.34-5.60)
== END 2022-09-02 08:00 | disposition home or self-care (01) ==
LOC: LAB.S 07:59
PROVIDERS: ATTEND Registered Nurse
DX: J45.909 Unspecified asthma, uncomplicated (principal); Z13.220 Encounter for screening for lipoid disorders; Z79.899 Other long term (current) drug therapy
CPT/HCPCS: 36415; 80053; 80061; 83721; 84443; 85025

== ENCOUNTER 2022-09-16 08:53 | Outpatient (CLI) | payer BC ==
--- NOTE | 2022-09-16 09:37 | XRAY Report ---
PROCEDURE: Chest 2 View X-Ray INDICATIONS: COUGH,COVID19,ASTHMA TECHNIQUE: 2 views of the chest were acquired. COMPARISON: None FINDINGS: Surgical changes and devices: None. Lungs and pleura: No pleural effusions or pneumothorax. Lungs are clear. Mediastinum: Mediastinal contours are normal. Heart size is normal. Bones and chest wall: No suspicious bony abnormalities. Soft tissues appear unremarkable. IMPRESSION: No acute cardiopulmonary abnormality Reviewed by: Gómez Urias on 09/16/2022 9:36 AM [facility] Approved by: Gómez Urias on 09/16/2022 9:36 AM [facility] Station ID: [id number]
== END 2022-09-16 08:54 | disposition home or self-care (01) ==
LOC: DI.S 08:53
PROVIDERS: ATTEND Nurse Practitioner
DX: U07.1 COVID-19 (principal); R05.9 Cough, unspecified; J45.901 Unspecified asthma with (acute) exacerbation

== ENCOUNTER 2023-08-25 09:54 | Outpatient (CLI) | payer BC ==
--- NOTE | 2023-08-25 10:16 | XRAY Report ---
PROCEDURE: Chest 2 View X-Ray INDICATIONS: CHEST CONGESTION TECHNIQUE: 2 views of the chest were acquired. COMPARISON: 09/16/2022. FINDINGS: Surgical changes and devices: None. Lungs and pleura: No pleural effusions or pneumothorax. Mild pulmonary vascular congestion is seen. No focal infiltrate. Mediastinum: Mediastinal contours appear normal. Heart size is mildly enlarged. Bones and chest wall: No suspicious bony lesions. Overlying soft tissues appear unremarkable. IMPRESSION: Mild pulmonary vascular congestion. No focal infiltrate, pleural effusion or pneumothorax . Reviewed by: Lamont Lin MD on 08/25/2023 10:14 AM [facility] Approved by: Lamont Lin MD on 08/25/2023 10:14 AM [facility] Station ID: [id number]
== END 2023-08-25 09:55 | disposition home or self-care (01) ==
LOC: DI 09:54
PROVIDERS: ATTEND Physician Assistant Medical
DX: R09.89 Other specified symptoms and signs involving the circulatory and respiratory systems (principal)

== ENCOUNTER 2023-09-14 08:31 | Outpatient (CLI) | payer BC ==
--- NOTE | 2023-09-15 09:38 | Mammography Report ---
BILATERAL DIGITAL SCREENING MAMMOGRAM 3D/2D: 09/14/2023 CLINICAL: Routine screening. Baseline exam. No prior exams were available for comparison. There are scattered areas of fibroglandular density in both breasts (category b / 25%-50% glandular t issue). No significant masses, calcifications, or other findings are seen in either breast. IMPRESSION: NEGATIVE There is no mammographic evidence of malignancy. A 1 year screening mammogram is recommended. Based on the Tyrer Cuzick model (a risk assessment model) the patients lifetime risk is 4.7% and her 10 year risk is 2.2%. According to the ACR, ACS, and NCCN guidelines, an annual breast MRI exam sarthak g with mammogram is recommended if the patients lifetime risk is 20% or greater. This exam was interpreted at Station ID: [id number]. NOTE: For mammograms, a report in lay terms will be sent to the patient. Approximately 15% of breast malignancies will not be visualized mammographically. In the management of a palpable breast mass, a negative mammogram must not discourage biopsy of a clinically suspicious lesion. Electronically Signed By: Ana lawson/kristin:09/14/2023 15:41:03 letter sent: No_Letter ACR BI-RADS Category 1: Negative 3341F PARENCHYMAL PATTERN: (A) - The breast(s) demonstrate(s) scattered fibroglandular densities. BI-RADS CATEGORY: (1) - 1 Mammogram [id number] 1 year screening LATERALITY: (B)
== END 2023-09-14 08:32 | disposition home or self-care (01) ==
LOC: DI.S 08:31
DX: Z12.31 Encounter for screening mammogram for malignant neoplasm of breast (principal); R92.323 Mammographic fibroglandular density, bilateral breasts

== ENCOUNTER 2023-09-17 08:11 | Outpatient (CLI) | payer BC ==
[2023-09-17 14:54] LABS: BASOPHILS # (AUTO) 0.1 10^3/uL (0.0-0.1); BASOPHILS % (AUTO) 0.7 %; EOSINOPHILS # (AUTO) 0.8 10^3/uL (0.0-0.7); EOSINOPHILS % (AUTO) 11.2 %; HCT - HEMATOCRIT 46.3 % (37.0-47.0); HGB - HEMOGLOBIN 14.7 g/dL (12.0-16.0); LYMPHOCYTES # (AUTO) 2.1 10^3/uL (1.5-3.5); LYMPHOCYTES % (AUTO) 30.4 %; MEAN CORPUSCULAR HEMOGLOBIN 28.4 pg (27.0-31.0); MEAN CORPUSCULAR HGB CONC 31.7 g/dL (32.0-36.0); MEAN CORPUSCULAR VOLUME 89.4 fL (81.0-99.0); MEAN PLATELET VOLUME 11.4 fL (7.9-10.8); MONOCYTES # (AUTO) 0.6 10^3/uL (0.0-1.0); MONOCYTES % (AUTO) 7.9 %; NEUTROPHILS # (AUTO) 3.4 10^3/uL (1.5-6.6); NEUTROPHILS % (AUTO) 49.7 %; PLT - PLATELET COUNT 349 10^3/uL (130-450); RED BLOOD COUNT 5.18 10^6/uL (4.20-5.40); RED CELL DISTRIBUTION WIDTH 13.8 % (12.0-15.0); WHITE BLOOD COUNT 6.9 x10^3/uL (4.8-10.8)
[2023-09-17 15:03] LABS: ALBUMIN 4.3 g/dL (3.2-5.5); ALBUMIN/GLOBULIN RATIO 1.5 (1.0-2.2); ALKALINE PHOSPHATASE 101 IU/L (42-121); ALT ALANINE AMINOTRANSFERASE 22 IU/L (10-60); AST ASPARTATE AMINOTRANSFERASE 20 IU/L (10-42); BILIRUBIN,TOTAL 0.5 mg/dL (0.2-1.0); BUN - BLOOD UREA NITROGEN 15 mg/dL (6-20); CARBON DIOXIDE - CO2 27 mmol/L (21-32); CHLORIDE 105 mmol/L (101-111); CHOL/HDL RATIO 3.9 (<4.4); CHOLESTEROL 179 mg/dL; CREATININE 0.9 mg/dL (0.6-1.3); GFR - MDRD 63 (>89); GLUCOSE 98 mg/dL (74-104); HDL CHOLESTEROL 46 mg/dL; LDL CHOLESTEROL,CALCULATED 101 mg/dL; LDL/HDL RATIO 2.2 (<4.4); POTASSIUM 4.3 mmol/L (3.5-4.5); SODIUM 138 mmol/L (135-145); TOTAL PROTEIN 7.1 g/dL (6.4-8.9); TRIGLYCERIDES 158 mg/dL (48-352); VLDL CHOLESTEROL 32 mg/dL
== END 2023-09-17 08:12 | disposition home or self-care (01) ==
LOC: LAB.S 08:11
PROVIDERS: ATTEND Registered Nurse
DX: Z79.899 Other long term (current) drug therapy (principal); Z13.220 Encounter for screening for lipoid disorders
CPT/HCPCS: 36415; 80053; 80061; 83721; 85025

== ENCOUNTER 2023-10-18 14:50 | Outpatient (CLI) | payer BC ==
[2023-10-18] MEDS ORDERED: ALBUTEROL 1 PUFF INH STA (17:58)
== END 2023-10-18 14:51 | disposition home or self-care (01) ==
LOC: RT 14:50
PROVIDERS: ATTEND Registered Nurse
DX: J45.901 Unspecified asthma with (acute) exacerbation (principal)
CPT/HCPCS: 94060; 94729